=== PATIENT | male | born 1975 | race Caucasian/White ===

== ENCOUNTER 2017-09-06 13:35 | Emergency (ER) | payer SELFPAY ==
[2017-09-06 13:57] VITALS: BP 137/90
--- NOTE | 2017-09-06 14:57 | RADIOLOGY REPORT (SQ) ---
EXAM DESCRIPTION: KNEE RIGHT 4 VIEWS COMPLETED DATE/TIME: 09/06/2017 2:46 pm REASON FOR STUDY: rt knee pain COMPARISON: None. NUMBER OF VIEWS: Four views. TECHNIQUE: AP, lateral, and both oblique radiographic images acquired of the right knee. LIMITATIONS: None. FINDINGS: MINERALIZATION: Normal. BONES: No acute fracture or dislocation. No worrisome bone lesions. JOINT: Moderate to large suprapatellar knee joint effusion. SOFT TISSUES: No soft tissue swelling. No radio-opaque foreign body. OTHER: No other significant finding. IMPRESSION: Knee joint effusion, question internal derangement. No acute fracture. TECHNICAL DOCUMENTATION: JOB ID: [id number] [employer]- All Rights Reserved
[2017-09-06] MEDS ORDERED: HYDROCODONE/ACETAMINOPHEN 5-325 MG TABLET PO ONE (15:41)
--- NOTE | 2017-09-06 15:47 | ER Document Report ---
ED Extremity Problem, Lower - General Chief Complaint: Knee Injury Stated Complaint: RIGHT KNEE INJURY/PAIN, SWELLING Time Seen by Provider: 09/06/17 15:21 Mode of Arrival: Ambulatory Information source: Patient TRAVEL OUTSIDE OF THE [place] IN LAST 30 DAYS: No - HPI Patient complains to provider of: Injury, Pain, Swelling Location: Knee Occurred: Just prior to arrival Where: Outdoors Onset/Duration: Sudden Quality of pain: Achy Severity: Moderate Recent injury: Yes Notes: Patient arrives with complaints of right knee pain. He states that he was walking when he twisted his knee and had a sudden pain and swelling in the medial aspect of the right knee. He is now barely able to bear any weight due to pain and has limited range of motion due to pain. He denies any fall or trauma. He denies fevers. He denies redness. He denies numbness, tingling, weakness. He denies any chest pain or shortness of breath. He denies any rashes. Patient denies any blood thinners. Pain is worse with weightbearing and walking. Better with specific positions. He denies any other complaints at this time. - Related Data Allergies/Adverse Reactions: ondansetron [From Zofran (as hydrochloride)] Allergy (Verified 09/06/17 13:38) tramadol Allergy (Verified 09/06/17 13:38) Past Medical History - Social History Smoking Status: Current Every Day Smoker Chew tobacco use (# tins/day): Yes Frequency of alcohol use: Occasional Drug Abuse: Marijuana Family History: Reviewed & Not Pertinent Patient has suicidal ideation: No Patient has homicidal ideation: No Renal/ Medical History: Denies: Hx Peritoneal Dialysis Review of Systems - Review of Systems -: Yes All other systems reviewed and negative Physical Exam - Vital signs Vitals: Temp Pulse Resp BP Pulse Ox 97.9 F 89 20 137/90 H 96 09/06/17 13:57 09/06/17 13:57 09/06/17 13:57 09/06/17 13:57 09/06/17 13:57 - Notes Notes: GENERAL: alert, cooperative, nontoxic, no distress. HEAD: normocephalic, atraumatic EYES: conjunctiva pink without discharge, no external redness or swelling. EARS: no external swelling, no external redness NOSE: atraumatic, no external swelling MOUTH/THROAT: mucous membranes moist and pink NECK: soft, supple, full range of motion, no meningismus. CHEST: no distress, lungs clear and equal throughout. No wheezing, rales, rhonchi. CARDIAC: regular rate and rhythm, no murmur, normal capillary refill, normal pulses. BACK: full range of motion, no CVA tenderness. EXTREMITIES: efFusion to the right knee noted with limited range of motion secondary to pain. Tenderness along the medial aspect of the right knee. Patella is intact with normal straight leg raise. There is no obvious ligament instability noted on exam although exam is limited secondary to pain. Hip and ankle joints are normal. Pulse and sensation distally is normal. There is no redness or signs of infection. Compartments are soft. NEURO: alert and oriented 3, no focal deficits, full range of motion of all extremities. PYSCH: appropriate mood, affect. Patient is cooperative. SKIN: pink, warm, dry, no rash. Course - Re-evaluation Re-evalutation: 09/06/17 15:44 Patient is nontoxic appearing with stable vitals. The patient was walking when he has sudden pain in the medial aspect of his right knee. He is now noted to have a joint effusion. No obvious ligament instability is identified at this time. Is likely that the patient has torn something in his knee with most likely being the meniscus or medial collateral ligament. X-ray showed no acute bony abnormality. There is no redness or signs of infection. There is no sign of compartment syndrome. He is neurovascularly intact. He will be placed in a knee immobilizer and given crutches. He will be given a prescription for pain medication. Instructions to rest, ice, elevate his knee. Follow-up with orthopedics at the next available appointment. Follow-up sooner for increased pain, fever, numbness, tingling, weakness, redness, or any further concerns. The patient is noted to have elevated blood pressure during today's emergency department visit. The patient was informed of this finding. The patient was instructed that this may be related to pre-hypertension and requires further evaluation with a primary care provider. The patient has no hypertensive symptoms at this time. The patient's emergency department workup and current diagnosis were explained to the patient and or family. Follow-up instructions were provided. Medications if prescribed were discussed. Instructions for when to return to the emergency department including specific worrisome symptoms were discussed with the patient and/or family. - Vital Signs Vital signs: Temp Pulse Resp BP Pulse Ox 97.9 F 89 20 137/90 H 96 09/06/17 13:57 09/06/17 13:57 09/06/17 13:57 09/06/17 13:57 09/06/17 13:57 - Diagnostic Test Radiology reviewed: Image reviewed, Reports reviewed - Right knee without acute bony abnormality. Joint effusion noted. Procedures - Immobilization Right knee Pre-Proc Neuro Vasc Exam: Normal Immobilizer type: Knee immobilizer Performed by: PCT Post-Proc Neuro Vasc Exam: Normal Alignment checked and good: Yes Discharge - Discharge Clinical Impression: Internal derangement of right knee Condition: Stable Disposition: HOME, SELF-CARE Instructions: Use of Crutches (OM), Ice & Elevation (OM), Suspected Internal Knee Injury (OM) Additional Instructions: Wear brace and use crutches until follow-up with orthopedics. Rest, ice, elevate your knee. Take medications as prescribed. Follow-up sooner for increasing pain, fever, redness, numbness, tingling, weakness, any further concerns. Your blood pressure was elevated during today's visit. Have this rechecked with your doctor. The medication you were prescribed today may cause drowsiness. Do not drive or operate heavy machinery while taking this medication. Prescriptions: Diclofenac Sodium [Voltaren 50 Mg Carmen.] 50 mg PO BID #20 tablet. Hydrocodone/Acetaminophen [[place] 5-325 mg Tablet] 2 tab PO Q6H PRN #15 tab PRN Reason: Forms: Elevated Blood Pressure, Smoking Cessation Education Referrals: AMY GUILLEN DO [ACTIVE STAFF] - Follow up as needed [facility] [Provider Group] - Follow up as needed
== END 2017-09-06 16:20 | disposition home or self-care (01) ==
LOC: ER 13:35
DX: S89.91XA Unspecified injury of right lower leg, initial encounter (principal); M25.561 Pain in right knee; M25.461 Effusion, right knee; X50.0XXA Overexertion from strenuous movement or load, initial encounter; Y93.01 Activity, walking, marching and hiking; Z88.8 Allergy status to other drugs, medicaments and biological substances; Z88.5 Allergy status to narcotic agent; F17.200 Nicotine dependence, unspecified, uncomplicated; R03.0 Elevated blood-pressure reading, without diagnosis of hypertension
CPT/HCPCS: 99283; 73564; L1830